=== PATIENT | female | born 1990 | race American Indian/Alaskan Native ===

== ENCOUNTER 2018-02-02 21:20 | Emergency (ER) | payer OTHER, MEDICAID ==
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
[2018-02-03] MEDS ORDERED: ULTRAM PO ONE (04:28)
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
[2018-02-03 05:03] VITALS: BP 118/73
== END 2018-02-03 05:01 | disposition home or self-care (01) ==
LOC: ED 21:20
DX: M25.562 Pain in left knee (principal); F17.200 Nicotine dependence, unspecified, uncomplicated; Z79.899 Other long term (current) drug therapy; V49.19XA Passenger injured in collision with other motor vehicles in nontraffic accident, initial encounter; Y93.89 Activity, other specified; Y99.8 Other external cause status; Y92.488 Other paved roadways as the place of occurrence of the external cause
CPT/HCPCS: 99283